=== PATIENT | female | born 1990 | race Caucasian/White ===

== ENCOUNTER 2024-10-15 18:30 | Emergency (ER) | payer MEDICAID, SELFPAY ==
[2024-10-15 18:50] VITALS: BP 135/93; PULSE 86; RESP 16; TEMP 36.8; O2SAT 98; BMI 32.3
--- NOTE | 2024-10-15 19:07 | PD.EDHAND ---
Upper Extremity Injury RME/HPI General Chief Complaint: Hand/Wrist Problems Stated Complaint: LEFT THUMB LACERATION Time Seen by Provider: 10/15/24 19:01 Arrival date/time: 10/15/24 18:30 RME / HPI RME / HPI narrative: 34-year-old female patient came in for evaluation regarding wound check. Patient sustained a laceration with a broken glass left thumb, he happened 3 days ago. Patient was just applying pressure dressing but today was noted to be bleeding. Patient denies any fever denies any other complaints tetanus vaccination is unknown. Related Data Home Medications ?Medication ?Instructions ?Recorded ?Confirmed vit no.95-ferrous 1 tab PO DAILY 06/05/19 06/05/19 fumarate 28 mg-folic acid 800 mcg tablet () Previous Rx's ?Medication ?Instructions ?Recorded ibuprofen 600 mg tablet 600 mg PO Q6H #30 tabs 06/06/19 cephalexin 500 mg capsule 500 mg PO TID 7 days #21 caps 10/15/24 ibuprofen 800 mg tablet 800 mg PO TID PRN pain #30 tabs 10/15/24 Allergies Allergy/AdvReac Type Severity Reaction Status Date / Time almio lugo AdvReac Severe BLISTERS, Verified 10/15/24 18:33 WORSENS ECZEMA Review of Systems Review of Systems Narrative Review of Systems: Review of system reviewed and within normal limits except mentioned in HPI ED Exam Narrative Physical exam: VITAL SIGNS: Reviewed. GENERAL APPEARANCE: Alert and interactive, follows commands, no acute distress, HEAD AND FACE: Non-traumatic. ENT: PERRL, pink conjunctivitis, eyelid no trauma, Mucous membrane moist. NECK: Supple, nontender, no nuchal rigidity. RECTAL: Deferred. GENITAL: Deferred. NEUROLOGICAL: Gross motor function intact sensory function intact, Appropriate for age. MUSCULOSKELETAL: low back nontender, full range of motion. EXTREMITIES: 1.5 cm gaping laceration, lateral aspect of the time left, full range of motion. SKIN: Color pink, dry, no rash, no lacerations, no abrasions, no contusions. LYMPHATICS: Deferred. Course Quality Measures none Orders Category Date Time Status Set Up Suture Tray STAT Care 10/15/24 19:09 Active Ibuprofen Tab [Motrin Tab] Med 10/15/24 19:06 Discontinued 800 mg PO X1 ONE Lidocaine 1% 20 ml [Xylocaine 1% 20 ML] Med 10/15/24 19:06 Discontinued 10 ml INFL X1 ONE TET,DIP/PERT AC (Adult)-Tdap [Boostrix Adult (Tdap) Med 10/15/24 19:06 Discontinued Vacc] 0.5 ml IMI .ONCE ONE cephALEXin [Keflex] Med 10/15/24 19:06 Discontinued 500 mg PO X1 ONE Vital Signs Vital signs: Vital Signs Temperature 98.3 F 10/15/24 18:50 Pulse Rate 86 10/15/24 18:50 Respiratory Rate 16 10/15/24 18:50 Blood Pressure 135/93 H 10/15/24 18:50 Pulse Oximetry (%) 98 10/15/24 18:50 Oxygen Delivery Method Room Air 10/15/24 18:50 Procedures -ED Laceration Laceration 1: Site: other (Thumb) Side (If applicable): left Size (cm): 1.5 Description: linear Depth: simple, single layer Local Anesthetic: lidocaine 1% Amount of anesthesia used (mL): 2 Pre-repair: wound explored, irrigated extensively and deep structures intact Size (cm): 4-0 Number of sutures: 3 Technique: simple, interrupted Extremity Injury MDM Narrative MDM Narrative:: 34-year-old female patient came in for evaluation regarding wound check. Patient sustained a laceration with a broken glass left thumb, he happened 3 days ago. Patient was just applying pressure dressing but today was noted to be bleeding. Patient denies any fever denies any other complaints tetanus vaccination is unknown. Patient also complained of numbness to the distal part of the ends laceration. Plan of care discussed with the patient including primary. Even though the wound is 3 days old, the wound looks clean and not infected. Patient was also given Boostrix and Keflex as prophylactic to prevent infection. Repair and suturing was done by me see procedure notes patient tolerated procedure well Patient appears nontoxic and hemodynamically stable. Patient discharged home and instructed to follow-up with primary care provider in 24 to 48 hours. Instructed to return to the emergency department immediately if worsening of symptoms Patient data External records reviewed:: None Clinical information provided by:: patient Social determinants that could affect healthcare access:: none Patient has the following chronic illnesses:: none How is presenting disease/condition affected by chronic disease/condition?: no chronic disease Evaluation data The following diagnostics were reviewed and interpreted by me:: other (specify) Lab and/or radiology exams considered but not ordered:: none Interpretation Summary: none Medications / Prescriptions Medications or Prescriptions considered but not ordered:: none Medication administrations:: Medication Administration History Discontinued Medications Cephalexin HCl (Cephalexin 250 Mg Capsule) 500 mg PO X1 ONE Stop: 10/15/24 19:07 Diphtheria/Tetanus/Acell Pertussis (Diphth,Pertuss(Acell),Tet Vac 0.5 Ml Syr- Adult) 0.5 ml IMi .ONCE ONE Stop: 10/15/24 19:07 Ibuprofen (Ibuprofen Tab 400 Mg Tablet) 800 mg PO X1 ONE Stop: 10/15/24 19:07 Lidocaine HCl (Lidocaine Hcl 1% 20 Ml Vial) 10 ml INFL X1 ONE Stop: 10/15/24 19:07 Keflex, Boostrix and Motrin Consultations Consultation(s) initiated? (list below): No Diagnosis Upper Extremity Injury Differential Diagnosis: other (thumb , Laceration, skin avulsion, infected wound, wound check) Most likely diagnosis given after review of the tests above:: Thumb laceration Admission Indicated Admission indicated?: not indicated Admission Request Was there a request for admission?: No Disposition Plan Disposition Plan: Discharge Discharge Attestation Discharge Attestation: The patient was given an opportunity to ask questions and understood the discharge instructions. Discharge instructions specifically effects, indications for sooner follow up or return to the emergency department, and the expected course of current diagnosis. Patient condition: Stable Discharge Plan Plan Patient Disposition: HOME (Self Care) Disposition Comment: Stable Prescriptions/Referrals Prescriptions/Med Rec: New cephalexin 500 mg capsule 500 mg PO TID 7 Days Qty: 21 0RF ibuprofen 800 mg tablet 800 mg PO TID PRN (Reason: pain) Qty: 30 0RF No Action PNV cmb#95-ferrous fumarate-FA [] 28 mg iron- 800 mcg Tablet 1 tab PO DAILY ibuprofen 600 mg tablet 600 mg PO Q6H Qty: 30 0RF Referrals: No Primary/Family,Physician [Primary Care Provider] - In 1 week Problem List Clinical Impression: Laceration of thumb Patient/Caregiver Discharge Instructions Discharge Activity: activity as tolerated Education Materials: ED Laceration: All Closures Additional Instructions: Thank you for the opportunity for serving you today. You are stable for discharged . You are advised to: Follow-up with your PCP in 1 to 2 days Return to ED for worsening of symptoms, redness, puslike drainage Increase oral fluids Take medication as prescribed Daily dressing with bacitracin as needed for removal of sutures in 7 to 10 days Print Language: Barbadian Stand Alone Forms: Shadia Award Info., Patient Portal Info Letter PA/COMMISSARY HELPER Supervising Physician PA/COMMISSARY HELPER Supervising Physician: MD Margaret
[2024-10-15] MEDS: IBUPROFEN TAB 400 MG TABLET 800 MG PO (19:59)
[2024-10-15] MEDS: cephALEXin 250 MG CAPSULE 500 MG PO (20:00)
[2024-10-15] MEDS: DIPHTH,PERTUSS(ACELL),TET VAC 0.5 ML SYR- ADULT IMi (20:02)
[2024-10-15] MEDS: LIDOCAINE HCL 1% 20 ML VIAL 10 ML INFL (20:06)
== END 2024-10-15 21:00 | disposition home or self-care (01) ==
PROVIDERS: Emergency Provider Emergency Medicine
DX: S61.012A Laceration without foreign body of left thumb without damage to nail, initial encounter (principal); W25.XXXA Contact with sharp glass, initial encounter; Z23 Encounter for immunization
CPT/HCPCS: 12001; 90471; 90715; 99283; J3490; A9270